=== PATIENT | male | born 1945 | race Caucasian/White ===

== ENCOUNTER 2016-12-29 18:57 | Observation (INO) | payer MEDICARE ==
--- NOTE | 2016-12-29 21:00 | ED ---
I, Oh,Soohyun, scribed for Miah Patel MD on 12/29/16 at 2048 . Neurological HPI - HPI Summary HPI Summary: This 71 y/o male presents to ED for intermittent visual problems and memory problems that lasted about 15 minutes yesterday evening. Vision problem involved both eyes. Pt was talking to his friend, and pt "lose 15 minutes or so of the conversation". Positive possible expressive aphasia. He does not have any complaint at this moment. PMHx includes several TIA with latest one in August 2015. Pt was encouraged to come to ED by his doctor. Pt used to be on clopidogrel, now on Apprenox and daily ASA. Primary are involves Dr. Fournier as his neurologist. - History of Current Complaint Chief Complaint: EDNeurologicalDeficit Stated Complaint: PROBLEMS WITH VISION/MEMORY ISSUE Time Seen by Provider: 12/29/16 20:32 Hx Obtained From: Patient, Medical Records Onset/Duration: Sudden Onset Timing: Intermittent Episodes Lasting: - 15 minutes Pain Intensity: 0 Character: Visual Changes, Other: - memory problem Aggravating: Nothing Alleviating: Spontanious Resolution Associated Signs and Symptoms: Positive: Visual Changes, Memory Loss - Additional Pertinent History Primary Care Physician: [id number] - Allergy/Home Medications Allergies/Adverse Reactions: Allergies Allergy/AdvReac Type Severity Reaction Status Date / Time Iodinated Diagnostic Agents Allergy Hives/Diff. 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 Denies: Hx Congestive Heart Failure, Hx Hypertension Respiratory History: Reports: Other Respiratory Problems/Disorders - Churg- Corinne Vasculitis Denies: Hx Asthma, Hx Chronic Obstructive Pulmonary Disease (COPD) GI History: Reports: Hx Gastroesophageal Reflux Disease, Hx Hiatal Hernia Denies: Hx Ulcer History: Denies: Hx Renal Disease Musculoskeletal History: Reports: Hx Arthritis, Hx Tendonitis - HX OF Sensory History: Reports: Hx Contacts or Glasses - Readers Denies: Hx Hearing Aid Opthamlomology History: Reports: Hx Contacts or Glasses - Readers Psychiatric History: Denies: Hx Panic Disorder - Surgical History Surgery Procedure, Year, and Place: 09/04/15 -[facility] DR MRI- CONDITION 5 - MRI ONLY WITH ALL COMPLETED DOCUMENTATION SPECIFIED ABOVE COMPLETED AND FILED. 09/12/16 {SS}. CATARACT. REATTACHED RETINAL SURG - THROUGH GAS BUBBLE/LASER/ CRYOGENIC (NO IMPLANTS- PREV MRI OF BRAIN). LAPORSCOPIC DISCECTOMY - LUMBAR Hx Anesthesia Reactions: No Infectious Disease History: No Infectious Disease History: Denies: Hx Hepatitis, Hx Human Immunodeficiency Virus (HIV), Traveled Outside the [place] in Last 30 Days - Family History Known Family History: Positive: Other - Mother with multiple TIA - Social History Alcohol Use: Daily Alcohol Amount: 4-5/WEEK Substance Use Type: Reports: None Smoking Status (MU): Former Smoker Length of Time of Smoking/Using Tobacco: 15 YRS Have You Smoked in the Last Year: No Review of Systems Negative: Fever Neurological: Other - Positive for visual changes and memory problem, intermittent for 15 minutes All Other Systems Reviewed And Are Negative: Yes Physical Exam Triage Information Reviewed: Yes Vital Signs On Initial Exam: Initial Vitals Temp Pulse Resp BP Pulse Ox 97.6 F 97 15 124/71 98 12/29/16 19:18 12/29/16 19:18 12/29/16 19:18 12/29/16 19:18 12/29/16 19:18 Vital Signs Reviewed: Yes Appearance: Positive: Well-Appearing, No Pain Distress Skin: Positive: Warm Head/Face: Positive: Normal Head/Face Inspection Eyes: Positive: EOMI, MARIAMA ENT: Positive: Hearing grossly normal Neck: Positive: Supple Respiratory/Lung Sounds: Positive: Breath Sounds Present Cardiovascular: Positive: RRR Abdomen Description: Positive: Nontender, Soft Bowel Sounds: Positive: Present Musculoskeletal: Positive: Strength/ROM Intact Neurological: Positive: Alert, Oriented to Person Place, Time, Normal Gait Diagnostics - Vital Signs Vital Signs Temp Pulse Resp BP Pulse Ox 12/29/16 19:18 97.6 F 97 15 124/71 98 - Laboratory Result Diagrams: 12/29/16 21:13 12/29/16 21:13 Lab Statement: Any lab studies that have been ordered have been reviewed, and results considered in the medical decision making process. - CT Brain CT Interpretation: No Acute Changes - NO EVIDENCE FOR GROSS ACUTE INFARCT, MASS EFFECT OR HEMORRHAGE. CT Interpretation Completed By: Radiologist - EKG 2121 Cardiac Rate: NL - 73 bpm EKG Rhythm: Sinus Rhythm NIH Scale - NIH Scale Level of Consciousness: Alert/Keenly Responsive Ask Patient the Month and His/Her Age: Both Correct Ask Pt to Open/Close Eyes and Mechanical Shovel Operator/Release Non-Paretic Hand: Both Correctly Best Gaze (Only Horizontal Eye Movement): Normal Visual Field Testing: No Visual Loss Facial Paresis-Pt to Smile & Close Eyes or Grimace Symmetry: Normal/Symmetrical Motor Function - Right Arm: No Drift-Holds 10 Seconds Motor Function - Left Arm: No Drift-Holds 10 Seconds Motor Function - Right Leg: No Drift-Holds 10 Seconds Motor Function - Left Leg: No Drift-Holds 10 Seconds Limb Ataxia-Must be out of Proportion to Weakness Present: Absent Sensory (Use Pinprick to Test Arms/Legs/Trunk/Face): Normal Best Language (Describe Picture, Name Items): No Aphasia Dysarthria (Read Several Words): Normal Extinction and Inattention: No Abnormality Total Score: 0 Re-Evaluation - Re-Evaluation First Eval Re-Evaluation Time: 21:51 Comment: results d/w pt, case d/w dr fournier rec admission, d/w hospitalist Course/Dx - Course Course Of Treatment: Consultation: Dr. Fournier (Neurologist) at 2201 PM -- recommends admission. Dr. Rm (hospitalist) at 2217 PM Assessment/Plan: This 71 y/o male presents to ED for intermittent vision issues and memory problem yesterday afternoon for about 15 minutes. Positive possible expressive aphasia. Pt is alert and oriented at time of initial evaluation, and does not have any complaint. PMHx is significant for multiple TIAs, and pt was encouraged to visit ED by Dr. Fournier. Blood work and CT Brain were normal. Dr. Fournier was consulted, who recommneded hospital admission. Dr. Rm, clinical admissions manager hospitalist, accepts pt's admission. - Diagnoses Provider Diagnoses: TIA (transient ischemic attack) - Physician Notifications Discussed Care Of Patient With: Azucena Fournier - Recommends admission Time Discussed With Above Provider: 22:01 Instructed by Provider To: Admit As Inpatient Discharge - Discharge Plan Condition: Fair Disposition: ADMITTED TO [facility] Referrals: Juju Vega MD [Primary Care Provider] - The documentation as recorded by the Mg barnett Soohyun accurately reflects the service I personally performed and the decisions made by me, Miah Patel MD.
[2016-12-29 21:23] LABS: Hematocrit 47 % (42-52); Hemoglobin 15.8 g/dl (14.0-18.0); Mean Corpuscular HGB Conc 34 g/dl (31-36); Mean Corpuscular Hemoglobin 30 pg (27-31); Mean Corpuscular Volume 90 fL (80-94); Mean Platelet Volume 10 um3 (7.4-10.4); Red Blood Count 5.25 10^6/ul (4.0-5.4); Red Cell Distribution Width 14 % (10.5-15); White Blood Count 9.5 10^3/ul (3.5-10.8)
[2016-12-29 21:38] LABS: Albumin 4.3 g/dL (3.2-5.2); BUN/Creatinine Ratio 16.7 (8-20); Calcium 9.1 mg/dL (8.6-10.3); EGFR African American 86.2 (>60); Globulin 2.2 g/dL (2-4); Potassium 3.9 mmol/L (3.5-5.0); Total Bilirubin 0.9 mg/dL (0.2-1.0); Total Protein 6.5 g/dL (6.4-8.9)
--- NOTE | 2016-12-29 21:49 | RAD ---
INDICATION: TIA. COMPARISON: Comparison is made with a prior CT of the brain from August 31, 2015 and a prior MRI of the brain from September 19, 2016. TECHNIQUE: Contiguous axial sections of the brain were obtained from the skull base to the vertex without contrast. FINDINGS: The ventricles, cisterns and sulci are within normal limits. No significant focal abnormality or mass effect is seen. There is no evidence for hemorrhage. There is chronic mucosal thickening within the visualized portion of the maxillary and ethmoid sinuses there is also mucosal thickening within the sphenoid and maxillary sinuses. The mastoid air cells appear clear. IMPRESSION: NO EVIDENCE FOR GROSS ACUTE INFARCT, MASS EFFECT OR HEMORRHAGE.
[2016-12-30] MEDS: Heparin VIAL(*) 5000 UNITS/ML VIAL (FIVE THOUSAND) SUBCUT SCH ×2 (06:56→14:42)
[2016-12-30 07:49] LABS: HDL Cholesterol 35.1 mg/dL
--- NOTE | 2016-12-30 08:53 | HP ---
CC: Dr. Juju Vega * HISTORY AND PHYSICAL: DATE OF ADMISSION: 12/29/16 PRIMARY CARE PHYSICIAN: Juju Vega MD CHIEF COMPLAINT: Trouble in making sentences. HISTORY OF PRESENT ILLNESS: The patient is a 71-year-old gentleman who said yesterday, he had about 50 minutes of inability to retrieve information from his brain. He said he was recently on a trip and he could not remember a recount of cities that he had been to. He just could not construct the sentences. He also had a little bit of vision issue like he was looking at a blind spot. It happened about midday on Thursday. He denied any slurred speech. He denied any facial droop. No arm or leg weakness, but he did have a mild headache. The patient has had this in the past and has been diagnosed with a TIA. He spoke to his neurologist who recommended he come to the ER for further evaluation. PAST MEDICAL HISTORY: Significant for syndrome diagnosed when he was 53 years old, GERD, mitral valve prolapse, tachycardia, PVC's, hyperlipidemia, TIA' s, hypertension. PAST SURGICAL HISTORY: Significant for diskectomy, cataract surgery, retinal surgery and inguinal hernia repair. CURRENT MEDICATIONS: 1. Metoprolol tartrate 25 mg twice daily. 2. 150 mg daily. 3. Aggrenox one capsule twice daily. 4. Multivitamin one tablet daily. 5. Cholecalciferol 2000 units in the morning. 6. Calcium 750 mg twice daily. 7. Lipitor 40 mg in the morning. ALLERGIES: He has SULFA allergy and CONTRAST DYE allergy. FAMILY HISTORY: Mother had mitral valve prolapse and TIA's. Father with no known medical problems. Maternal grandmother with a stroke. SOCIAL HISTORY: The patient is a former smoker, quit 40 years ago. He reports having a beer with a dinner about 5 to 6 weeks. Denies any elicit drug use. 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 REVIEW OF SYSTEMS: A 14-point review of systems was completed with the patient. All pertinent positives and negatives are in the History of Present Illness, otherwise it is negative. PHYSICAL EXAMINATION GENERAL: A very pleasant gentleman lying in bed, in no acute distress. VITAL SIGNS: Temperature 97.6 degrees, heart rate 97 beats per minute, respiratory rate 15 breaths per minute, pulse ox 90%, blood pressure 124/71. HEENT: Normocephalic, atraumatic. Pupils equal, round, and reactive to light. Moist mucous membranes. NECK: Supple. No JVD, bruits, palpable thyroid or lymphadenopathy. CHEST: Clear to auscultation and percussion bilaterally. CARDIOVASCULAR: S1, S2 appreciated. Regular rate and rhythm. ABDOMEN: Positive bowel sounds in all 4 quadrants. Soft, nontender, and nondistended. EXTREMITIES: No cyanosis, clubbing or edema. +2 pulses bilaterally. NEUROLOGIC: Alert and oriented x3. Moves all extremities. SKIN: No rashes or abnormalities. LABORATORY DATA/IMAGING STUDIES: White count 9.5, hemoglobin 15.8, hematocrit 47, platelets 181. Sodium 137, potassium 3.9, chloride 106, CO2 26, BUN 18, creatinine 1.08, glucose is 85. INR is 0.96. Brain CT was interpreted by Radiology as no evidence for acute infarct, mass effect or hemorrhage. EKG shows normal sinus rhythm with 72 beats per minute, left axis deviation, left anterior hemiblock PVC, no acute ST or T-wave changes. ASSESSMENT AND PLAN: 1. Transient ischemic attack. The patient has had a C4, he was on Plavix and aspirin, which was recently switched to Aggrenox, so we will continue Aggrenox. Continue Lipitor. Check lipid levels. Check MRI in the a.m. for Neurology to evaluate. The patient is currently asymptomatic. Neurologic checks q.4 hours. 2. Hypertension, adequate control. Continue metoprolol. 3. Gastroesophageal reflux disease, stable. Continue Ranitidine. 4. FEN: Low salt diet. 5. DVT prophylaxis: Heparin subcutaneously. 6. The patient is a full code. TIME SPENT: Over 75 minutes was spent on this H and P; more than 40 minutes of which was spent in direct [id number] contact with the patient in evaluation, physical exam, counseling, and coordination of care. [id number]/[facility] #: [id number] MTDD
[2016-12-30] MEDS ORDERED: Dipyridamole/Aspirin 25/200* CAP.ER PO SCH (09:00)
[2016-12-30] MEDS ORDERED: Prenatal Vitamin TAB PO SCH (09:00)
[2016-12-30] MEDS ORDERED: Famotidine TAB* 20 MG PO SCH (09:00)
[2016-12-30] MEDS ORDERED: Cholecalciferol TAB* 1000 UNITS PO SCH (09:00)
[2016-12-30] MEDS ORDERED: Calcium Carbonate TAB* 1250 MG (CALCIUM 500 MG) PO SCH (09:00)
[2016-12-30] MEDS ORDERED: Metoprolol Tartrate TAB* 25 MG PO SCH (09:00)
[2016-12-30] MEDS ORDERED: Atorvastatin* 40 MG TAB PO SCH (09:00)
[2016-12-30 11:25] VITALS: BP 101/65
--- NOTE | 2016-12-30 12:27 | RAD ---
HISTORY: History of PFO, TIA COMPARISONS: None relevant TECHNIQUE: Multiple transverse and longitudinal ultrasound images were obtained of the bilateral lower extremities from the level of the common femoral vein inferiorly through to the infrapopliteal veins using grayscale, color Doppler, and spectral Doppler imaging with and without compression and with augmentation. FINDINGS: VEINS: The venous system of the bilateral lower extremities is compressible throughout its course, with normal flow on color Doppler imaging and normal response to augmentation on spectral Doppler imaging. SOFT TISSUES: Unremarkable. OTHER FINDINGS: None. IMPRESSION: NO RIGHT LOWER EXTREMITY DEEP VEIN THROMBOSIS. NO LEFT LOWER EXTREMITY DEEP VEIN THROMBOSIS
[2016-12-30 14:19] LABS: Urine Bilirubin Negative (Negative); Urine Glucose Negative (Negative); Urine Nitrite Negative (Negative)
--- NOTE | 2016-12-30 16:43 | CONS ---
NEUROLOGY CONSULTATION: DATE OF CONSULT: 12/30/16 REQUESTING PROVIDER: Denilson Rm MD. REASON FOR CONSULT: Possible TIA. 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 He notes that he had been away on a 2-week trip a [employer], where he had been on several airplanes, had done a significant amount of driving, and then had taken 3 flights to get home on 12/27/16. He arrived home at approximately 2 a.m. on 12/28 and was fatigued from this trip. On 12/28, he had the onset of visual changes, which he describes similar to looking into the sun. He had what he calls a bright blind spot. This lasted for perhaps 5 to 10 minutes and subsequent to that he was trying to explain details of his trip and was unable to express himself. It seems that he could not really recount where he had been and was not able to put sentences together. In total, he thinks the episode lasted approximately 20 minutes. Afterward, he developed a mild headache, which remained with him the rest of the day. He denies any associated photophobia, phonophobia, or nausea with this. He did not have any slurring of his speech, no extremity weakness or numbness, no vertigo, no swallowing difficulties. He has had some other similar episodes with the last one being in August of 2015. With that episode, he was found to have a heart rhythm problem and received a pacemaker during that admission. With previous episodes, which have been concerning for TIA, he has had either difficulty expressing himself, sometimes difficulty with recognizing people mentioned in conversation whom he should know and other times difficulty reading. He notes that his first such episode occurred about 30 years ago when he also had a visual disturbance and difficulty reading. He does believe this episode was followed by a headache as well and possibly some nausea, but he is not sure about that. He admits to a history of what he calls sinus headaches, which seem to occur exclusively in the setting of sinus infections and are relieved when he receives antibiotics. However, as a younger man, he states he had a very stressful job and would get stress headaches on the top of his head. He does not recall associated photophobia or phonophobia with this. His father did get headaches as well. After his episode in August, I saw him in my office in October or November and recommendation was made to change to Aggrenox from Plavix. In addition, I recommended a consultation at the [facility] stroke clinic given his possible history of Churg-Corinne vasculitis, though this appears quiet, as well as his history of patent foramen ovale for their thoughts on his episodes and the optimal treatment. That consultation has not yet been completed. With this recent episode, he suggests that he may have felt some skipped beats in his heart and has had a history of PVCs in the past, but otherwise denies any tachycardia, chest pain, or lightheadedness. I should note that nearly all of his episodes have occurred in the setting of fatigue either having been on a long trip and gotten poor sleep or having physically exerted himself a great deal the day prior to an episode. PAST MEDICAL HISTORY: 1. Churg-Corinne vasculitis, possible. 2. GERD. 3. Known PFO. 4. Mitral valve prolapse. 5. Tachycardia, status post pacemaker. 6. PVCs. 7. Hyperlipidemia. 8. TIAs. 9. Hypertension. PAST SURGICAL HISTORY: 1. Diskectomy, right L5-S1. 2. Cataract surgery. 3. Retinal surgery. 4. Inguinal hernia repair. HOME MEDICATIONS: 1. Ranitidine 150 mg daily. 2. Multivitamin. 3. Metoprolol 25 mg b.i.d. 4. Aggrenox one b.i.d. 5. Vitamin D 2000 units q.a.m. 6. Calcium 750 b.i.d. 7. Atorvastatin 40 mg daily. ALLERGIES: He is allergic to IODINATED CONTRAST AGENTS, which cause hives/ difficulty breathing/itching. He is also allergic to SULFA drugs. FAMILY HISTORY: Father had headaches as mentioned. He of leukemia in old age. Mother had mitral valve prolapse and TIA/strokes. SOCIAL HISTORY: He is a former smoker, quit many years ago. He is not a heavy alcohol user. He denies any illicit drug use. He owns apartment complexes. REVIEW OF SYSTEMS: As per the HPI, otherwise negative. PHYSICAL EXAMINATION: Vital Signs: Temperature 97.8, blood pressure 101/65, heart rate 70, oxygen saturation 97% on room air. On general examination, he is pleasant man sitting at the edge of his bed in no acute distress. He was doing a crossword puzzle when I entered. His heart is in a regular rate and rhythm with no murmurs, rubs or gallops. Lungs are clear to auscultation bilaterally. The carotids reveal no bruits. On neurologic exam, he is fully awake, alert, and oriented. Speech is fluent without dysarthria or aphasia. He is able to explain the [employer] theft picture without any difficulties and able to name objects without any difficulties. Pupils are equal, round, and reactive from 2 to 1.5 mm bilaterally. Versions are full without nystagmus. Kumar are full to confrontation. Facial sensation and musculature is full and symmetric. Hearing is intact to finger rub. Shoulder shrug is full and symmetric. Palate elevates symmetrically and the tongue is midline. On motor testing, he has got normal strength in the upper and lower extremities. There is no pronator drift. Sensation is intact to light touch and pinprick in the upper and lower extremities. Reflexes are 2 + in the upper extremities, 2+ in the knees, 1+ left ankle absent and right ankle with downgoing toes. [id number] is without ataxia. Romberg is negative. His gait is narrow based and stable. He is able to heel and toe walk. LABORATORY DATA/DIAGNOSTIC STUDIES: CBC was entirely normal including differential. CMP was entirely normal. Fasting lipid studies today showed triglycerides of 290, total cholesterol 127, LDL 34, and HDL of 35.1. Coagulation studies were normal. Noncontrast brain CT was personally reviewed and showed no evidence of an acute intracranial process. He underwent venous Doppler of the lower extremities secondary to his known PFO , which showed no evidence for clot. He had an MRI scan of his brain in August of 2015, which showed several scattered small foci of elevated T2/FLAIR signal on the periventricular and subcortical white matter, which is nonspecific in nature. EEG was performed and was a normal study. IMPRESSION: Bejnie Fuentes is a 71-year-old man with cardiovascular risk factors including hypertension and hyperlipidemia as well as probable past TIAs who presented with an episode of visual disturbance followed by expressive language disturbance and then mild headache. He has had other such episodes, which have had similar features, but had not been stereotyped. His EEG was negative. His antiplatelet agent was recently changed to Aggrenox and he has been tolerating this relatively well. At this point, I wonder if some of these symptoms could be migrainous phenomenon. He does have a past history of headaches as well as a family history of headaches and some of the features of his description could be consistent with migraine auras. We will try to have his pacemaker interrogated today to see if there had been any signs of atrial fibrillation, which would warrant a change in his antiplatelet agent to an anticoagulant. He was due to see Dr. Bland today at 1 p.m., which had to be cancelled because of his admission. If we are not able to get the pacemaker interrogated here, I think it would be fine to have him follow up with Dr. Bland as an outpatient for this interrogation. Otherwise, I would keep him on his Aggrenox and recommend pursuing the outpatient consult with the stroke specialist in [place] for their input on these repeated episodes as well. This was discussed with the patient and he was agreeable to the plan. I also discussed with Dr. Hoffman. Thank you for this consultation. [id number]/[facility] #: [id number] ROMI
--- NOTE | 2016-12-30 22:37 | EEG ---
ELECTROENCEPHALOGRAPHY: DATE OF STUDY: 12/30/16 - ROOM #447 LOCATION: The patient is an inpatient. ORDERING PHYSICIAN: Dr. Isis Hoffman. CLINICAL PROBLEM: This is a 71-year-old man with a history of Churg-Corinne vasculitis, which has been inactive/well controlled recently, who came to the emergency department with a possible TIA. This episode consisted of an inability to retrieve information. He was recently on a trip and could not remember the cities that he had been to. He had difficulty speaking and also had some vision issues. MEDICATIONS: 1. vitamin. 2. Pepcid. 3. Vitamin D. 4. Lipitor. 5. Lopressor. 6. Aggrenox. 7. Calcium. 8. Heparin. REPORT: The waking background showed appropriate organization with clearly defined anterior to posterior voltage and frequency gradients. There was a well -defined posterior dominant rhythm of 9 Hz, which was symmetrical and showed normal reactivity. Anteriorly, there was an expected pattern of lower voltage, irregular, mixed faster frequencies. Hyperventilation and photic stimulation were not performed. Attenuation of the occipital rhythm accompanied drowsiness. The sleep background was appropriately organized with well-developed sleep spindles and vertex waves. The sleep transients showed appropriate morphology and were bilaterally synchronous and symmetrical. Throughout the recording, there were no epileptiform discharges, focal features , paroxysmal features, or significant interhemispheric asymmetries. CLINICAL IMPRESSION: This is a normal waking and sleep EEG. There are no epileptiform abnormalities. [id number]/[facility] #: [id number] MTDD
--- NOTE | 2016-12-31 01:35 | DS ---
CC: Juju Vega MD; Dr. Fournier; Dr. Bland* DISCHARGE SUMMARY: DATE OF ADMISSION: 12/29/16 DATE OF DISCHARGE: 12/30/16 PRIMARY CARE PROVIDER: Juju Vega MD DISCHARGE DIAGNOSIS: Transient alteration of mental state that occurred on that resolved. SECONDARY DIAGNOSES: 1. History of similar episodes 4 times prior. 2. History of remote Churg-Corinne disease. 3. Gastroesophageal reflux disease. 4. Mitral valve prolapse. 5. Tachycardia. 6. History of premature ventricular contractions. 7. Hyperlipidemia. 8. History of transient ischemic attacks. 9. History of hypertension. 10. History of patent foramen ovale. 11. History of sinus node dysfunction, status post pacemaker placement in 2016. MEDICATIONS AT DISCHARGE: Include: 1. Atorvastatin 40 mg daily. 2. Calcium 750 mg b.i.d. 3. Vitamin D 2000 units daily. 4. Aggrenox 1 capsule b.i.d. 5. Metoprolol tartrate 25 mg b.i.d. 6. Multivitamin 1 tablet daily. 7. Zantac 150 mg daily. The medications are unchanged from prior. LABORATORY DATA: Apart from the one at admission includes cholesterol profile, which showed triglycerides 290, cholesterol total of 127, LDL of 34 and HDL of 35. The patient underwent pacemaker interrogation, which showed 1 episode of SVT at 135 beats per minute that lasted 31 seconds and 1 episode of ventricular tachycardia at over 170 beats per minute that lasted 2 seconds. There were no episodes of atrial fibrillation. Venous Doppler study obtained of bilateral lower extremities showed no DVT. CONSULTATIONS DURING THE HOSPITAL STAY: Included Dr. Fournier from Neurology. HOSPITALIZATION COURSE: Benjie Fuentes is a 71-year-old male who had an episode of feeling that he is unable to recall what happened to him in the past several days and could not construct his sentences. For further details of the patient's presentation, please see Dr. Rm's history and physical dictated at admission. Similar episodes occurred 4 times before and they always happen when the patient is very tired and most of those were accompanied by a headache. The patient was evaluated on telemetry monitored bed and no arrhythmias were noted. His pacemaker was also interrogated with results as above. He has history of PFO and bilateral venous Doppler study was performed and was negative for DVT. At this point after discussion with Dr. Bonno, it was decided that the patient does not need to be longer evaluated in the hospital. He had an outpatient MRI obtained in September 2016 which was unremarkable and due to his history of pacemaker, although it is MRI safe, it would be very difficult to obtain an MRI inpatient unless it was not recommended by Neurology. At this point, the differential includes atypical migraine. The patient stated that whenever those episodes happened, he had a headache and he was very tired and sleep deprived. The patient is going to be discharged home with no changes to his medications with recommendation to follow up with Dr. Vega in 4 to [address] Fournier in approximately 1 month. PHYSICAL EXAMINATION: At discharge is unchanged from admission and unremarkable. [id number]/[facility] #: [id number] ROMI
== END 2016-12-30 17:20 | disposition home or self-care (01) ==
LOC: ED 18:57 → MEDTELE 23:41
PROVIDERS: ADMIT Internal Medicine; ATTEND Internal Medicine
DX: R41.82 Altered mental status, unspecified (principal); K21.9 Gastro-esophageal reflux disease without esophagitis; I34.1 Nonrheumatic mitral (valve) prolapse; R00.0 Tachycardia, unspecified; I49.3 Ventricular premature depolarization; E78.5 Hyperlipidemia, unspecified; I10 Essential (primary) hypertension; Q21.1 Atrial septal defect; Z86.73 Personal history of transient ischemic attack (TIA), and cerebral infarction without residual deficits; Z95.0 Presence of cardiac pacemaker; Z79.01 Long term (current) use of anticoagulants; Z79.899 Other long term (current) drug therapy; Z88.2 Allergy status to sulfonamides; Z87.891 Personal history of nicotine dependence; M30.1 Polyarteritis with lung involvement [Churg-Strauss]
CPT/HCPCS: 36415; 70450; 80053; 80061; 81003; 83605; 85025; 85610; 93005; 93970; 95819; 96372; 99283; A9270-GY; G0378; J1644